=== PATIENT | female | born 1975 | race Caucasian/White ===

== ENCOUNTER → 2016-10-13 | Outpatient (CLI) | payer BC | END | disposition home or self-care (01) | LOC: GMAL 14:39 | PROVIDERS: ATTEND Family Medicine | DX: D50.9 Iron deficiency anemia, unspecified (principal) ==

== ENCOUNTER → 2017-02-07 | Outpatient (CLI) | payer BC | END | disposition home or self-care (01) | LOC: GMAL 14:24 | PROVIDERS: ATTEND Family Medicine | DX: D51.3 Other dietary vitamin B12 deficiency anemia (principal); R41.82 Altered mental status, unspecified; R53.82 Chronic fatigue, unspecified ==

== ENCOUNTER → 2017-02-09 | Outpatient (CLI) | payer BC ==
--- NOTE | 2017-02-10 09:04 | MRI ---
EXAM DESCRIPTION: Brain w/wo Contrast CLINICAL HISTORY: 41 years Female, MEMORY LOSS COMPARISON: None. TECHNIQUE: Multiplanar multisequence images of the brain were obtained with and without gadolinium contrast. FINDINGS: There is no diffusion restriction. Midline structures, including the corpus callosum, pituitary and brainstem, are unremarkable. Alignment of the craniocervical junction is anatomic. The ventricles are of normal size and configuration without intraventricular mass. No extra-axial fluid collections. Physiologic vascular flow voids are noted. The internal auditory canals and cerebellopontine angles are unremarkable. No ramirez or white matter signal abnormality is noted in the cerebral or cerebellar hemispheres. Minimal mucoperiosteal thickening in the left maxillary sinus. Visualized paranasal sinuses and orbits are otherwise unremarkable. No calvarial lesion. Postcontrast images show physiologic vascular enhancement. No enhancing intracranial lesion. IMPRESSION: Negative exam. No apparent intracranial abnormality to explain memory loss. Electronically signed by: Milad Mckeon MD 02/10/2017 9:02 AM CDT
== END | disposition home or self-care (01) ==
LOC: MRI 07:44
PROVIDERS: ATTEND Family Medicine
DX: R41.82 Altered mental status, unspecified (principal)

== ENCOUNTER → 2017-10-05 | Outpatient (CLI) | payer BC | LOC: GMAL 10:12 | PROVIDERS: ATTEND Family Medicine | DX: E03.9 Hypothyroidism, unspecified (principal); E55.9 Vitamin D deficiency, unspecified ==

== ENCOUNTER → 2019-01-23 | Outpatient (CLI) | payer BC | LOC: GMAL 11:56 | PROVIDERS: ATTEND Family Medicine | DX: Z00.00 Encounter for general adult medical examination without abnormal findings (principal); Z51.81 Encounter for therapeutic drug level monitoring ==

== ENCOUNTER → 2019-03-19 | Outpatient (CLI) | payer BC | LOC: GMAL 10:42 | PROVIDERS: ATTEND Family Medicine | DX: D51.3 Other dietary vitamin B12 deficiency anemia (principal); E03.9 Hypothyroidism, unspecified; E55.9 Vitamin D deficiency, unspecified ==